=== PATIENT | female | born 1940 | race Caucasian/White ===

== ENCOUNTER 2018-03-28 10:57 | Outpatient (CLI) | payer MEDICARE, OTHER, SELFPAY ==
--- NOTE | 2018-03-28 10:12 | DI.REPORT_ITS ---
SYMPTOM/DIAGNOSIS: PAIN IN RIGHT HIP M25.551 LUMBOSACRAL SPINE: 03/28 Five views were obtained. Note is made of apparent previous abdominal wall ventral hernia repair and vascular clips are also noted overlying the pelvis on the left. There are moderate degenerative change of the S-I joints bilaterally. There is no evidence of spondylolysis or spondylolisthesis. There are prominent hypertrophic changes involving the facet joints and vertebral end plates throughout the lower thoracic and lumbar spine. No compression fracture seen. CONCLUSION: Marked degenerative changes of the lumbar spine a described above. RIGHT HIP AND PELVIS: 03/28 Two views were obtained. There are moderate degenerative changes of both hips. There are degenerative changes of both S-I joints. No other significant bony abnormality seen.
== END 2018-03-28 10:58 ==
PROVIDERS: PCP Neuromusculoskeletal Medicine & OMM; Visit Provider Neuromusculoskeletal Medicine & OMM
DX: M25.551 Pain in right hip (principal); M16.0 Bilateral primary osteoarthritis of hip; M53.3 Sacrococcygeal disorders, not elsewhere classified; M54.5 Low back pain; M47.816 Spondylosis without myelopathy or radiculopathy, lumbar region
CPT/HCPCS: 72110; 73502

== ENCOUNTER 2018-04-12 02:20 | Outpatient (CLI) | payer MEDICARE, OTHER, SELFPAY ==
[2018-04-12 09:25] LABS: Anion Gap 8.6 mmol/L (3-11); BUN 25 mg/dL (7-18); CO2 26.4 mmol/L (21.0-32.0); CREATININE 1.24 mg/dL (0.55-1.02); Calcium 9.5 mg/dL (8.5-10.1); Chloride 101 mmol/L (98-107); Estimated GFR 42.06 (mL/min/1.73m2); Glucose 97 mg/dL (70-100); Potassium 3.5 mmol/L (3.5-5.1); Sodium 136 mmol/L (136-145)
[2018-04-12 10:20] LABS: Bilirubin Negative (Negative); Blood Small (Negative); Clarity Cloudy; Glucose Negative (Negative); Ketones Negative (Negative); Leukocyte Esterase Moderate (Negative); Nitrite Negative (Negative); Specific Gravity >= 1.030 (1.005-1.025); Urobilinogen 0.2 EU/dL (Up TO 0.2); pH 5.5 (5-8)
[2018-04-12 10:30] LABS: WBC >50 HPF (0-5)
[2018-04-12 10:31] LABS: C & S Indicated? C&S Done As Ordered
--- NOTE | 2018-04-12 10:39 | DI.RPTCT_ITS ---
SYMPTOMS/DIAGNOSIS: PELVIC AND PERINEAL PAIN, R10.2 CT SCAN OF THE ABDOMEN AND PELVIS: CT scan of the abdomen and pelvis was performed following the uneventful administration of intravenous contrast material and oral contrast. Comparison is 02/01/18. Since the prior examination there have developed numerous noncalcified pulmonary nodules in the lung bases. The largest measures 1.6 cm and is located in the right middle lobe. Since the prior examination there have developed hypodense masses within the liver. The largest is seen in the posterior segment of the right lobe and measures 1.2 cm. The findings are suspicious for hepatic metastases. The gallbladder is negative by CT criteria. There is no biliary ductal dilatation. The portal and superior mesenteric veins are patent. The pancreas, spleen and adrenal glands are unremarkable. The kidneys show normal and symmetric enhancement. No evidence of a solid renal mass or obstruction. The urinary bladder is intact. There is 0.6 cm calcification in the dependent portion of the urinary bladder which was present on the prior examination and stable. There is concentric thickening of the wall of the urinary bladder and mild perivesicular inflammatory stranding. This raises the question of cystitis. The patient is status post hysterectomy. There is atherosclerosis of the abdominal aorta but no aneurysmal dilatation. No significant intra-abdominal or pelvic adenopathy is seen. There is an enlarged right inguinal lymph node measuring 1.4 cm. This is unchanged compared to the prior examination. The lytic lesion involving the right sacrum is again noted. There does appear to be increased soft tissue associated with mass particularly in the presacral space. There appears to be increased involvement of the right pyriformis muscle. The soft tissue mass associated with the right iliopsoas muscle is again seen. This appears stable. Degenerative changes are seen in the spine. There is a moderate amount of stool seen throughout the colon but no evidence of bowel obstruction or inflammation. IMPRESSION: 1. Progressive abdominal and pelvic metastatic disease since . Development of multiple pulmonary nodules. Hepatic nodules and increase in size of the soft tissue component of the right sacral mass. 2. Thickening and adjacent inflammatory changes around the urinary bladder. Cystitis is suspected. This may be infectious or inflammatory. Please correlate with the patient's history of radiation and chemotherapy.
[2018-04-12] MEDS: Omnipaque 350 MG/ML 100 ML BTL 50 ML IJ (10:50)
== END 2018-04-12 02:21 ==
PROVIDERS: PCP Neuromusculoskeletal Medicine & OMM; Visit Provider Neuromusculoskeletal Medicine & OMM
DX: N39.0 Urinary tract infection, site not specified (principal); R10.2 Pelvic and perineal pain; R91.8 Other nonspecific abnormal finding of lung field; C79.89 Secondary malignant neoplasm of other specified sites; C55 Malignant neoplasm of uterus, part unspecified
CPT/HCPCS: 36415; 80048; 74177; 81003; 81015; 87086; J3490

== ENCOUNTER 2018-04-20 08:35 | Emergency (ER) | payer MEDICARE, OTHER, SELFPAY ==
[2018-04-20] VITALS (20 sets, daily range): BP systolic 110–148; BP diastolic 62–123; PULSE 73–109; RESP 16; TEMP 36.3; O2SAT 89–99
--- NOTE | 2018-04-20 08:49 | DI.CT_ITS ---
SYMPTOM/DIAGNOSIS: PELVIC/SACRAL CANCER WORSENING ABD/PELVIC PAIN CT ABDOMEN AND PELVIS: Comparison is made with 12 April 2018. Images were performed from the lung bases through the ischial tuberosities after IV and without oral contrast. The lung bases show increase in size and number of pulmonary metastases. There has also been interval increase in size of liver metastases. The gallbladder appears somewhat distended , however, no wall thickening or biliary dilatation seen. The spleen, kidneys and adrenals are unremarkable. The pancreas is again noted to be atrophic. There is no bowel dilatation or inflammatory change. A large destructive lesion is again noted involving the right sacrum. There is asymmetry of the psoas muscles with ill-defined low density on the right side, which also may represent metastatic disease, however, infection could not be entirely excluded. The patient is again noted to be status post anterior abdominal wall hernia repair. A small amount of fat is seen herniating just superior to the level of the repair. The patient is status post hysterectomy. A stone is again seen in the bladder. The bladder is distended on the current exam and shows no wall thickening. IMPRESSION: Interval increase in size and number of pulmonary metastases and liver metastases. Question of slightly increased size of right sacral metastasis and adjacent soft tissue swelling. Grossly stable appearance of low density lesion in the right psoas muscle likely representing metastatic disease.There is no evidence of bowel obstruction.
[2018-04-20] MEDS: HYDROmorphone 2 MG/ML VIAL 1 MG IVP ×2 (09:44→14:34)
[2018-04-20 09:51] LABS: Bilirubin Negative (Negative); Blood Negative (Negative); Clarity Clear; Glucose Negative (Negative); Ketones Negative (Negative); Leukocyte Esterase Negative (Negative); Nitrite Negative (Negative); Urobilinogen 0.2 EU/dL (Up TO 0.2)
[2018-04-20 09:53] LABS: Abs Immature Grans 0.03 k/cumm (0.0-0.09); Absolute Basophil Count 0.09 k/cumm (0.0-0.2); Absolute Eosinophil Count 0.14 k/cumm (0.0-0.7); Absolute Lymphocyte Count 1.07 k/cumm (1.2-3.4); Absolute Monocyte Count 0.61 k/cumm (0.11-0.7); Absolute Neutrophil Count 4.76 k/cumm (1.2-6.7); Basophils % 1.3; Eosinophils % 2.1; HCT 43.4 % (36.0-46.0); HGB 14.5 g/dL (12.0-15.5); Immature Grans % 0.4; Mean Corp. HGB Concentration 33.4 g/dL (32.0-36.0); Mean Corpuscular Hemoglobin 30.7 pg (27.0-33.0); Mean Corpuscular Volume 91.9 fL (80-95); Mean Platelet Volume 10.2 fL (8.0-11.0); Monocytes % 9.1; Neutrophils % 71.1; Platelet Count 243 x1000/uL (130-400); RBC 4.72 m/cumm (4.00-5.20); RBC Distribution Width 13.2 % (11.7-14.6)
[2018-04-20 10:00] LABS: ALT 14 U/L (12-78); AST 29 U/L (15-37); Albumin 3.4 g/dL (3.4-5.0); Alkaline Phosphatase 82 U/L (46-116); Anion Gap 11.5 mmol/L (3-11); BUN 23 mg/dL (7-18); Bilirubin, Total 1.1 mg/dL (0.2-1.0); CO2 21.5 mmol/L (21.0-32.0); CREATININE 1.09 mg/dL (0.55-1.02); Calcium 9.8 mg/dL (8.5-10.1); Chloride 103 mmol/L (98-107); Glucose 99 mg/dL (70-100); Potassium 3.7 mmol/L (3.5-5.1); Sodium 136 mmol/L (136-145); Total Protein 8.2 g/dL (6.4-8.2)
[2018-04-20] MEDS: Omnipaque 350 MG/ML 100 ML BTL IJ (12:03)
--- NOTE | 2018-04-20 12:10 | DI.VRAD_ITS ---
EXAM: CT Abdomen and Pelvis With Intravenous Contrast CLINICAL HISTORY: 78 years old, female; Pain; Other: Pelvic/sacral cancer, pain. ; Patient HX: Worsening pelvic/abd pain. TECHNIQUE: Axial computed tomography images of the abdomen and pelvis with intravenous contrast. All CT scans at this facility use at least one of these dose optimization techniques: automated exposure control; mA and/or kV adjustment per patient size (includes targeted exams where dose is matched to clinical indication); or iterative reconstruction. Coronal and sagittal reformatted images were created and reviewed. COMPARISON: CT - CHEST ABD PELVIS WITH CONTRAST 02/01/2018 10:54 AM FINDINGS: Multiple new pulmonary nodules as compared to the prior study suggesting development of pulmonary metastatic disease. Multiple noncystic hepatic masses the largest in the right posterior lobe measuring 19 mm also suggestive of metastatic disease. Prior anterior abdominal wall hernia repair with mesh and bilateral inguinal herniorrhaphy is unchanged. Prior hysterectomy. Persistent lytic process in the right sacrum slightly increased from the prior study consistent with metastatic disease. Diffuse degenerative disc and facet disease of the lumbar spine with no other specific bony destructive process. Interval increase in soft tissue density involving the posterior presacral soft tissues on the right possible represent metastatic these or a recurrence of malignancy. Persistent increased density in the right iliac nedra chain possibly slightly increased in size. No focal inflammatory process. No bowel obstruction. No obstructive uropathy. IMPRESSION: Findings consistent with worsening of metastatic disease as outlined above. This includes an increase in the sacral bony destruction and presacral soft tissue mass as well as the additional findings described. Dictated and Authenticated by: Maico Euceda MD. Ordering:BRIANNA MARRERO MD
--- NOTE | 2018-04-20 21:39 | ED.GENADUL_ITS ---
Discharge Plan Disposition Patient Disposition: HOME Condition: Stable Discharge Details Chief Complaint: Nk/Back Pain Clinical Impression: Chronic pain, Increased urinary frequency, Metastatic cancer Primary Care Provider: Mitchell Lawrence ED Provider: Paul Gatica Home Meds and New Rx's Prescriptions: New ondansetron HCl [Zofran] 4 mg tablet 4 mg PO TID PRN (Reason: nausea and vomiting) 5 Days Qty: 10 RF: 0 hydromorphone [Dilaudid] 4 mg tablet 4 mg PO Q6H PRN (Reason: pain) Qty: 20 RF: 0 oxybutynin chloride 5 mg tablet 5 mg PO TID Qty: 20 RF: 0 naloxone [Narcan] 4 mg/actuation spray,non-aerosol 1 spray ADELAIDA ONCE PRN (Reason: decreased breathing) Qty: 2 RF: 0 No Action hydrochlorothiazide 25 MG tablet 25 mg PO DAILY RF: 0 gabapentin 100 MG capsule 300 mg PO DIRECTED RF: 0 ibuprofen 800 mg Tablet 800 mg PRN (Reason: Pain) RF: 0 losartan 25 mg Tablet 25 mg DAILY RF: 0 hydromorphone 2 mg Tablet 2 mg PO Q4H PRN PRN (Reason: Pain) RF: 0 simvastatin [Zocor] 20 MG tablet 20 mg PO HS RF: 0 Discharge Instructions Additional Instructions: You can increase your Dilaudid to a maximum of 4 mg 4 times per day. Please take the extra Dilaudid only as needed please take the bladder medication to decrease the amount of times need to urinate. Please follow-up with your oncologist and primary care provider soon as possible for reassessment. If you notice any worsening of your symptoms, or any new symptoms such as vomiting, diarrhea, fever, chills, shortness of breath, chest pain, numbness, weakness, or fainting , please return immediately to the emergency department for reevaluation. Please follow up with your primary care provider as soon as possible for reassessment and reevaluation. As always, it was a pleasure participating in your medical care today. Referrals: Mitchell Lawrence [Primary Care Provider] - Medical Decision Making MDM Narrative Medical decision making narrative: With a complicated past medical history including metastatic disease from her pelvis, Delano is a pleasant 78-year- old female and into her lungs. She presents with worsening chronic abdominal and pelvic pain as well as associated increased urinary frequency. The patient has continued on chemotherapy, however she has spreading of her disease in spite of this. She has been increasing her pain medication regiment with regular daily Dilaudid however she has had no improvement or resolution of her pain. Physical exam at bedside demonstrates diffuse lower abdominal tenderness, no significant musculoskeletal abnormalities on exam, normal strength in lower extremities. No signs of saddle anesthesia, or evidence of cauda equina syndrome. Laboratory workup is relatively benign with no significant abnormalities. No significant leukocytosis, normal urine analysis. No evidence of urinary tract infection. CT scan of the abdomen unfortunately demonstrates findings per virtual radiology consistent with worsening metastatic disease. Increased sacral bony destruction, presacral soft tissue mass, and additional findings in the lungs no other regions. No evidence of any acute process though of obstruction, infection, perforation, urolithiasis, or other abnormality. Patient's pain was controlled well here with Dilaudid IV. Because of the patient's history, as well as her potentially fatal metastatic components, as well as her severe pain secondary to the severe metastatic processes, I do feel that it is reasonable to treat the patient's pain at home. I discussed the goals of the patient, she is DNR/DNI and her main wish at this time is comfort. I feel this is certainly reasonable. I did discuss the risks and benefits of narcotics, especially in regards to potential respiratory depression or constipation the patient understands. We will give the patient Dilaudid, 4 mg every 6 hours for home use, as well as oxybutynin for her bladder spasms. She has close follow-up with her oncologist, and family doctor later this week. We will prescribe Narcan. All the risks and benefits of narcotics were discussed with the patient. Patient will be discharged home. We discussed red flags which to immediately return as well as the importance of notable oral fluid intake, stool softeners. Additionally the family did express how they were concerned that they might not be able to take care of her at home secondary to the pain that she has her pain with ambulation and movement. We did get case management involved and set up for home health to visit, and assistance to be given at home. Patient feels safe going home at this time with close follow-up tomorrow with medical assistance in the home. I have extensively reviewed the treatment plan and discharge instructions with the patient and their family. I have addressed all patient concerns at this time. The patient and family was made aware of what symptoms to monitor for that would warrant a return to the emergency department. Discussed the plan with the patient and family, they demonstrate verbal understanding and agreement with our assessment and plan at this time. Lab Data Lab Results 04/20/18 04/20/18 04/20/18 Range/Units 09:37 09:37 09:37 WBC 6.70 (4.4-10.8) k/cumm RBC 4.72 (4.00-5.20) m/cumm Hgb 14.5 (12.0-15.5) g/dL Hct 43.4 (36.0-46.0) % MCV 91.9 (80-95) fL MCH 30.7 (27.0-33.0) pg MCHC 33.4 (32.0-36.0) g/dL RDW 13.2 (11.7-14.6) % Plt Count 243 (130-400) x1000/uL MPV 10.2 (8.0-11.0) fL Immature Gran % 0.4 Neutrophils % 71.1 Lymphocytes % 16.0 Monocytes % 9.1 Eosinophils % 2.1 Basophils % 1.3 Absolute Neutrophils 4.76 (1.2-6.7) k/cumm Absolute Lymphocytes 1.07 L (1.2-3.4) k/cumm Absolute Monocytes 0.61 (0.11-0.7) k/cumm Absolute Eosinophils 0.14 (0.0-0.7) k/cumm Absolute Basophils 0.09 (0.0-0.2) k/cumm Sodium 136 (136-145) mmol/L Potassium 3.7 (3.5-5.1) mmol/L Chloride 103 (98-107) mmol/L Carbon Dioxide 21.5 (21.0-32.0) mmol/L Anion Gap 11.5 H (3-11) mmol/L BUN 23 H (7-18) mg/dL Creatinine 1.09 H (0.55-1.02) mg/dL Estimated GFR/1.73 m2 48.80 (mL/min/1.73m2) Glucose 99 (70-100) mg/dL Calcium 9.8 (8.5-10.1) mg/dL Total Bilirubin 1.1 H (0.2-1.0) mg/dL AST 29 (15-37) U/L ALT 14 (12-78) U/L Alkaline Phosphatase 82 (46-116) U/L Total Protein 8.2 (6.4-8.2) g/dL Albumin 3.4 (3.4-5.0) g/dL Urine Color Yellow (Yellow) Urine Clarity Clear Urine pH 6.0 (5-8) Ur Specific [place] 1.020 (1.005-1.025) Urine Protein Negative (Negative) mg/dL Urine Ketones Negative (Negative) mg/dL Urine Blood Negative (Negative) Urine Nitrite Negative (Negative) Urine Bilirubin Negative (Negative) Urine Urobilinogen 0.2 (Up TO 0.2) EU/dL Ur Leukocyte Esterase Negative (Negative) Urine Glucose Negative (Negative) mg/dL HPI - General Adult General Date/Time Provider Initiated Documentation: 04/20/18 08:47 . 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 She is on Eliquis for past DVT. She has been having worsening chronic pain secondary to the tumor in her abdomen. She has been on gabapentin, Dilaudid, and ibuprofen.. Her oncologist recently just increased her Dilaudid to 2 mg every 6 hours. She has recently stopped her hormonal replacement therapy by her oncologist. She presents today for worsening pelvic pain, increased urinary frequency, mild abdominal pain. Her home pain medication increases not been sufficient to improve her symptoms. She denies any vomiting, diarrhea, chest pain arm pain neck pain, shortness of breath, numbness, tingling, weakness. She has no other complaints at this time. Related Data Home Medications Medication Instructions Recorded Confirmed hydrochlorothiazide 25 mg PO DAILY tab-cap NS 01/26/16 06/23/17 gabapentin 300 mg PO DIRECTED 05/30/16 06/23/17 simvastatin [Zocor] 20 mg PO HS 06/23/17 06/23/17 hydromorphone 2 mg PO Q4H PRN PRN 04/20/18 04/20/18 ibuprofen 800 mg PRN 04/20/18 losartan 25 mg DAILY 04/20/18 04/20/18 Previous Rx's Medication Instructions Recorded hydromorphone [Dilaudid] 4 mg PO Q6H PRN #20 tab 04/20/18 naloxone [Narcan] 1 spray ADELAIDA ONCE PRN #2 each 04/20/18 ondansetron HCl [Zofran] 4 mg PO TID PRN 5 Days #10 tab 04/20/18 oxybutynin chloride 5 mg PO TID #20 tab 04/20/18 Allergies Allergy/AdvReac Type Severity Reaction Status Date / Time Gadolinium-Containing Allergy Unknown FACIAL Verified 04/20/18 11:08 Contrast Medi EDEMA, DIFFICULTY SWALLOWING codeine Allergy Syncope Verified 04/20/18 11:08 General Stated Complaint: Nk/Back Pain SARA: 3 Review of Systems Review of Systems 10 point review of systems was performed, pertinent positives and negatives are noted in the history of present illness. [facility] Social History Smoking/Tobacco Use Status: Never Exam Narrative Exam Narrative: 1.Const: Well-nourished, Well-developed, appearing stated age 2.Eyes: PERRL, no conjunctival injection, and symmetrical lids. 3.ENT: Atraumatic external nose and ears. Moist MM. Neck: Symmetric, trachea midline, No thyromegaly. There is no evidence of raccoon eyes, salazar sign, CSF rhinorrhea, mastoid tenderness, cranial crepitus, hemotympanum, exophthalmos , or hyphema. 4.CVS: +S1/S2, No murmurs or gallops. Peripheral pulses 2+ and equal in all extremities. Brisk capillary refill in all extremities. 5.RESP: Unlabored respiratory effort. Clear to auscultation bilaterally. No wheezes rales or rhonchi 6.GI: Soft,, no guarding or rebound, no hepatosplenomegaly. Mild reproducible tenderness lower abdominal quadrants bilaterally and pelvic region. Stable pelvis on exam. 7.MSK: Normocephalic/Atraumatic, Extremities w/o deformity or ttp No cyanosis or clubbing, Normal movement of all extremities, however patient does have some subjective weakness of lower extremities. 5 out of 5 strength on exam. No pain with logroll of the lower extremities. No midline tenderness to palpation over the CTLS spine. Normal ROM in flexion, extension, side bend, and rotation. Patient has +5 out of 5 strength in the lower extremities in dorsiflexion and plantarflexion, knee flexion and extension, hip flexion and extension. There is +2 over 2 dorsalis pedis pulses bilaterally. There is normal sensation to the skin with light touch at the foot, knee, and hip. Normal saddle sensation. Good sensation over the deep sural nerve area bilaterally. Rectal exam deferred. Reflexes are +2 over 4 in the patellar reflex bilaterally. +5 out of 5 strength in the medial, ulnar, radial nerve distribution bilaterally in the hands as well as intact light touch sensation to these dermatomes on the hands 8.Skin: Warm, Dry. No rashes or lesions. 9.Neuro: developer architect II-XII grossly intact. Sensation grossly intact, no focal neurologic deficits. 10.Psych: (AAO) x3. Appropriate mood and affect Course Vital Signs Pulse Oximetry 97 04/20/18 09:13 Temperature 36.3 C L 04/20/18 15:30 Pulse 109 H 04/20/18 15:30 Respiratory Rate 16 04/20/18 15:30 Blood Pressure 148/76 H 04/20/18 15:30 Pulse Oximetry 95 04/20/18 12:20 Lab/Test Results Lab/Test Results: Laboratory Tests 04/20/18 04/20/18 04/20/18 09:37 09:37 09:37 WBC 6.70 RBC 4.72 Hgb 14.5 Hct 43.4 MCV 91.9 MCH 30.7 MCHC 33.4 RDW 13.2 Plt Count 243 MPV 10.2 Immature Gran % 0.4 Neutrophils % 71.1 Lymphocytes % 16.0 Monocytes % 9.1 Eosinophils % 2.1 Basophils % 1.3 Absolute Neutrophils 4.76 Absolute Lymphocytes 1.07 L Absolute Monocytes 0.61 Absolute Eosinophils 0.14 Absolute Basophils 0.09 Sodium 136 Potassium 3.7 Chloride 103 Carbon Dioxide 21.5 Anion Gap 11.5 H BUN 23 H Creatinine 1.09 H Estimated GFR/1.73 m2 48.80 Glucose 99 Calcium 9.8 Total Bilirubin 1.1 H AST 29 ALT 14 Alkaline Phosphatase 82 Total Protein 8.2 Albumin 3.4 Urine Color Yellow Urine Clarity Clear Urine pH 6.0 Ur Specific [place] 1.020 Urine Protein Negative Urine Ketones Negative Urine Blood Negative Urine Nitrite Negative Urine Bilirubin Negative Urine Urobilinogen 0.2 Ur Leukocyte Esterase Negative Urine Glucose Negative
== END 2018-04-20 15:46 | disposition home or self-care (01) ==
PROVIDERS: Emergency Provider Student in an Organized Health Care Education/Training Program; PCP Neuromusculoskeletal Medicine & OMM
DX: R10.2 Pelvic and perineal pain (principal); G89.3 Neoplasm related pain (acute) (chronic); N32.89 Other specified disorders of bladder; R35.0 Frequency of micturition; R93.7 Abnormal findings on diagnostic imaging of other parts of musculoskeletal system; C55 Malignant neoplasm of uterus, part unspecified; C79.89 Secondary malignant neoplasm of other specified sites; Z79.899 Other long term (current) drug therapy
CPT/HCPCS: 36415; 80053; 96374; 96376; 99285; 74177; 81003; 82272; 85025; J2405; J3490